=== PATIENT | male | born 1990 | race African-American/Black ===

== ENCOUNTER → 2017-08-28 | Outpatient (CLI) | payer MEDICAID ==
[2017-08-28 16:05] LABS: BILIRUBIN,URINE NEGATIVE (NEGATIVE); BLOOD/HEMOGLOBIN,URINE NEGATIVE (NEGATIVE); GLUCOSE, URINE NEGATIVE (NEGATIVE); KETONES,URINE NEGATIVE (NEGATIVE); LEUKOCYTE ESTERASE ,URINE NEGATIVE (NEGATIVE); NITRITES,URINE NEGATIVE (NEGATIVE); PROTEIN,URINE 1+ (NEGATIVE); UROBILINOGEN,URINE NORMAL (NORMAL)
[2017-08-28 16:12] LABS: APPEARANCE,URINE CLEAR (CLEAR); COLOR,URINE YELLOW (YELLOW); RBC,URINE NONE SEEN /HPF (NEGATIVE)
[2017-08-28 16:13] LABS: BACTERIA,URINE NEGATIVE /HPF (NEGATIVE); SQUAMOUS EPITHELIAL CELL,UR NEGATIVE /HPF (NEGATIVE)
[2017-08-28 16:49] LABS: ALANINE AMINOTRANSFERASE 43 Units/L (12-78); ALBUMIN 3.1 g/dL (3.4-5.0); ALKALINE PHOSPHATASE 164 Units/L (46-116); ASPARTATE AMINO TRANSFERASE 22 Units/L (15-37); BLOOD UREA NITROGEN 16 mg/dL (7-18); CALCIUM 10.2 mg/dL (8.5-10.1); CARBON DIOXIDE 25.8 mmol/L (21-32); CHLORIDE 102 mmol/L (98-107); COR CA(FOR HYPOALB) 10.9 mg/dL (8.5-10.1); COR NA(FOR HYPERGLY) 137 mmol/L (136-145); CREATININE 0.87 mg/dL (0.70-1.30); SODIUM 136 mmol/L (136-145); TOTAL PROTEIN 9.1 g/dL (6.4-8.2); eGFR BLACK RACES > 60 (>60); eGFR NON BLACK RACES > 60 (>60)
--- NOTE | 2017-08-28 17:12 | RAD ---
Examination: Chest, PA and lateral views History: Preop hardware removal Findings: Normal heart size with clear lungs and pleural spaces. There is no mediastinal or hilar les ion. Detail is limited by patient's size. Impression: No acute abnormality demonstrated. Reported By:
== END ==
LOC: LAB 15:19
PROVIDERS: ATTEND Orthopaedic Surgery
DX: Z01.818 Encounter for other preprocedural examination (principal); Z79.01 Long term (current) use of anticoagulants; Z79.899 Other long term (current) drug therapy; Z11.8 Encounter for screening for other infectious and parasitic diseases; Z01.811 Encounter for preprocedural respiratory examination; M86.662 Other chronic osteomyelitis, left tibia and fibula
CPT/HCPCS: 36415; 71046; 80053; 81001; 85610; 85730; 87640; 87641

== ENCOUNTER 2017-09-03 07:13 | Inpatient (IN) | payer MEDICAID ==
[2017-09-03] MEDS ORDERED: NS 100 ML IV 100 ML IV ONE (07:28)
[2017-09-03] MEDS ORDERED: D5 LR 1000 ML 1,000 ML IV ONE (07:28)
[2017-09-03] MEDS ORDERED: ANCEF VIAL 1 GM ONE (07:29)
[2017-09-03] MEDS ORDERED: FENTANYL INJ 250 mcg ONE (08:02)
[2017-09-03] MEDS ORDERED: DILAUDID INJ ONE ×2 (09:27→11:07)
[2017-09-03] MEDS ORDERED: FENTANYL INJ 100 mcg ONE (09:27)
[2017-09-03] MEDS ORDERED: NS IRRIGATION 1000 ML 1,000 ML with BACITRACIN VIAL 50,000 UNT IR ONE ×2 (09:54)
[2017-09-03] MEDS ORDERED: BACTROBAN CREAM TOP ONE (10:00)
[2017-09-03] MEDS ORDERED: BACTROBAN OINT ONE (10:41)
[2017-09-03] MEDS: DILAUDID INJ IVP PRN ×7 (11:05→21:23)
[2017-09-03] MEDS ORDERED: ZOFRAN INJ 4 MG VIAL IVP PRN ×2 (11:07→11:24)
[2017-09-03] MEDS ORDERED: PHENERGAN INJ 25 MG IVP PRN (11:07)
[2017-09-03] MEDS ORDERED: BENADRYL INJ 50 MG VIAL IVP PRN (11:07)
[2017-09-03] MEDS ORDERED: REGLAN INJ 10 MG VIAL IVP PRN (11:07)
--- NOTE | 2017-09-03 11:10 | DR.UPDATE ---
H&P Update History and Physical Update: History and Physical reviewed and patient examined. Changes noted: NO Yes with the following:agree with Dr Houser H&P. will place picc line Procedures (ALL) - Central Line Placement PCM.CLCO: written consent Time out performed: Yes Patient placed pm monitor/pulse ox: Yes prep: mask, gown, gloves, other Centrial line prep: chlorhexidine scrub Ultrasound used for placement: Yes Central line lumen ininserted: double Post procedure: good blood return, all ports aspirated, flushed,capped, sterile dressing applied Patient tolerated procedure: Yes Complications: none
[2017-09-03] MEDS ORDERED: MORPHINE SULFATE INJ 4 MG IVP PRN (11:27)
--- NOTE | 2017-09-03 11:28 | RAD ---
AP chest Indication: PICC line placement Comparison: 08/28/2017 Findings: A left-sided PICC line has been placed the tip appears terminate within the lower SVC. Lung s are clear the heart size is normal. No pleural effusion or pneumothorax. No acute osseous abnormali ty. Impression: Interval placement of a left-sided PICC line with the tip appearing to terminate within t he lower SVC. No acute cardiopulmonary abnormality. Reported By:
--- NOTE | 2017-09-03 11:30 | RAD ---
Four views of the left foreleg Indication: Postop evaluation after hardware removal Comparison: None available Findings: Moderate amount of gas is noted within the subcutaneous tissues of the anterior left knee a nd knee joint consistent with recent surgery. Skin billy are noted overlying the anterior and media l aspect of the left knee. There are healed fracture deformities involving the mid left tibial and fi bular diaphysis. Hardware removal with lucency noted within distal left tibia without evidence of ass ociated fracture. There is also lucency within the proximal left tibia consistent with recent hardwar e removal. Mild Achilles and moderate plantar fascia enthesopathic change. Impression: Postsurgical change within the left foreleg with interval hardware removal from the proxi mal and distal left tibia without acute osseous abnormality. Healed mid left tibial and fibular diaph ysis fracture deformities are noted. Reported By:
[2017-09-03] MEDS ORDERED: LOPRESSOR INJ 5 MG AMP IVP ONE (12:50)
[2017-09-03 12:56] VITALS: BMI 48.7
[2017-09-03] MEDS: HYDROCHLOROTHIAZIDE 12.5 MG CAP PO SCH (13:17)
[2017-09-03] MEDS ORDERED: ZOFRAN INJ 4 MG VIAL ONE ×2 (15:22→15:28)
[2017-09-03] MEDS ORDERED: QUELICIN (OR ANECTINE) ONE (15:28)
[2017-09-03] MEDS ORDERED: VERSED ONE (15:28)
[2017-09-03] MEDS ORDERED: XYLOCAINE 2 % (PLAIN) ONE (15:28)
[2017-09-03] MEDS ORDERED: SUPRANE IN ONE (15:28)
[2017-09-03] MEDS ORDERED: DIPRIVAN VIAL ONE (15:28)
[2017-09-03] MEDS: TOPROL XL PO SCH (18:38)
[2017-09-03] MEDS ORDERED: VANCOMYCIN HCL 1 GM VIAL 1 GM in D5W 250 ML IV 250 ML IV SCH (21:00)
[2017-09-03] MEDS ORDERED: NS 250 ML IV 250 ML IV ONE (21:20)
[2017-09-03] MEDS ORDERED: VANCOMYCIN HCL 1 GM VIAL ONE (21:20)
[2017-09-03] MEDS: AMBIEN PO PRN (21:41)
[2017-09-04] MEDS: DILAUDID INJ IVP PRN ×11 (00:55→22:43)
[2017-09-04] MEDS ORDERED: CHLORASEPTIC SPRAY MT PRN (04:01)
[2017-09-04 06:09] LABS: BASOPHILS # (AUTO) 0.1 X10^3/uL (0.0-0.1); BASOPHILS % (AUTO) 0.6 % (0.2-1.0); EOSINOPHILS # (AUTO) 0.1 x10^3/uL (0.0-0.2); EOSINOPHILS % (AUTO) 0.7 % (0.9-2.9); HEMATOCRIT 37.1 % (42.0-54.0); HEMOGLOBIN 12.6 g/dL (13.5-18.0); LYMPHOCYTES # (AUTO) 1.4 X10^3/uL (1.3-2.9); LYMPHOCYTES % (AUTO) 10.7 % (21.0-51.0); MEAN CORPUSCULAR HEMOGLOBIN 28.1 pg (27.0-34.0); MEAN CORPUSCULAR VOLUME 82.8 fL (80.0-100.0); MEAN PLATELET VOLUME 7.3 fL (7.4-11.0); MONOCYTES % (AUTO) 8.1 % (0.0-13.0); NEUTROPHILS # (AUTO) 10.1 x10^3/uL (2.2-4.8); NEUTROPHILS % (AUTO) 79.9 % (42.0-75.0); PLATELET COUNT 344 X10^3/uL (150.0-450.0); RED BLOOD COUNT 4.48 X10^6/uL (4.7-6.0); RED CELL DISTRIBUTION WIDTH 13.8 % (11.6-16.5); WHITE BLOOD COUNT 12.7 X10^3/uL (3.6-10.0)
[2017-09-04 06:32] LABS: BLOOD UREA NITROGEN 6 mg/dL (7-18); CALCIUM 9.2 mg/dL (8.5-10.1); CARBON DIOXIDE 28.4 mmol/L (21-32); CHLORIDE 97 mmol/L (98-107); COR NA(FOR HYPERGLY) 135 mmol/L (136-145); CREATININE 0.89 mg/dL (0.70-1.30); SODIUM 134 mmol/L (136-145); eGFR BLACK RACES > 60 (>60); eGFR NON BLACK RACES > 60 (>60)
[2017-09-04] MEDS: LOVENOX INJ 30 MG SYR SC SCH (08:08)
[2017-09-04] MEDS: HYDROCHLOROTHIAZIDE 12.5 MG CAP PO SCH (08:08)
[2017-09-04] MEDS: TOPROL XL PO SCH (08:09)
--- NOTE | 2017-09-04 08:10 | RAD ---
HISTORY: Shortness of breath Study: Single view chest Comparison: 09/03/2017 Findings: Stable left-sided PICC. No infiltrate, effusion or pneumothorax identified. The cardiac and mediastin al contours are within normal limits. The soft tissues are unremarkable. IMPRESSION: 1. No acute cardiopulmonary abnormality. Reported By:
[2017-09-04] MEDS ORDERED: OLANZAPINE 15 MG PO SCH (09:00)
[2017-09-04] MEDS ORDERED: PATIENT'S HOME MEDICATION (Rivaroxaban [Xarelto] 20 MG) PO SCH (09:00)
[2017-09-04] MEDS ORDERED: LAMOTRIGINE 100 MG PO SCH (09:00)
[2017-09-04] MEDS: VANCOMYCIN HCL 1 GM VIAL 1 GM in NS 250 ML IV 250 ML IV SCH ×2 (09:15→20:16)
[2017-09-04] MEDS: ZyPREXA TAB 5 MG PO SCH (09:16)
[2017-09-04] MEDS: LAMICTAL TAB 100 MG PO SCH ×2 (09:16→20:16)
[2017-09-04] MEDS: XARELTO PO SCH (09:53)
[2017-09-04] MEDS: FLONASE NASAL SPRAY ENOSTRIL SCH (10:18)
[2017-09-04] MEDS ORDERED: MORPHINE SULFATE INJ 10 MG IVP PRN (13:41)
--- NOTE | 2017-09-04 15:10 | OR.GENERIC ---
Post-Op Note Generic - Post-Op Note Operative Report: Preoperative diagnosis- LEFT tibia chronic osteomyelitis, tibial intramedullary nail in situ Postoperative diagnosis-LEFT tibia chronic osteomyelitis Procedure-1.implant removal LEFT tibia intramedullary nail 2. Incision and drainage of abscess LEFT tibia. 3. Sequestrectomy LEFT tibia. indication-patient for 26-year-old male presents to the office after referral from Dr. Edmundo Cross. Presented to the office with pain and swelling and discharging sinus from LEFT tibia. Patient's past history is significant for an open type III fracture of LEFT tibia treated with multiple debridement and intramedullary nailing.this was done in about 9-10 months ago.labs and x-rays showed signs of infection. X-rays showed that there is progression of healing and fracture line was no more visible. Suite was decided to proceed with the removal of the implant as well as debridement, sequestrectomy of the LEFT tibia.the need for PICC line and also chronic outpatient antibiotic treatment was discussed with him. Need for infectious diseases consult was also discussed with him. Complications like recurrence of infection, progression of the infection, septicemia, need for further procedures, re fracture were discussed with him as well as the mother. Both of them understood and verbalized to same and want to proceed with the procedure. Both of them consented for the procedure. Procedure-patient was seen in the preoperative holding area. Limb was marked. Antibiotics were withheld as we will be getting culture and sensitivity during the surgery. Patient got appropriate block. Patient was brought to the operating room and placed supine on the operating table. He was secureto the table with multiple safety straps. Patient was put under general anesthesia and endotracheal intubation was completed. Tourniquet was applied but was not used throughout the procedure. LEFT limb prepped and draped. The distal locking bolt was removed first. Incision was placed over the old scar. Dissection carried down bluntly to the top for the locking bolt. Locking bolt removed without much difficulty. On removing the locking bolt about 5 cc of malka pus was noted to extrude through the locking bolt hole. Thorough irrigation was done there. Next the proximal locking bolt was taken out.an incision was placed over the old scar. Dissection carried down bluntly to expose the head of the proximal locking bolt. Proximal locking bolt taken out without much difficulty. Again malka pus about 5 cc noted Extruding from the proximal locking bolt. Multiple cultures and sensitivity obtained and sent to the lab. Patient's initial surgery of interlocking was done with a suprapatellar approach. I decided to proceed with an infrapatellar approach for removal of the nail. Incision was placed over the infrapatellar region after determining the appropriate entry with the help of C-arm. Dissection carried down through the patellar tendon and patellar tendon was split. Malka pus was noted to extrude through the proximal part of the fat pad. The rest of the joint was examined and no amlka pus was noted in the joint. There is no active infection of the knee joint. At this time an extraction device was placed in the proximal part of the nail. The nail was extracted without much difficulty. At this time an incision was placed around the sinus corresponding to the old compound fracture. Sinus tract was removed and it tracked to the fracture site. At the fracture site multiple sequestrum were noted and they were removed in total. Fracture site seemed to be completely healed. There is bony bridge noted and no abdominal bruit is noted. Using flexible merchandising assistant the rest of the canal was hand reamed. Multiple cement extractors were used to remove the intramedullary membranes as well as sequestrum noted inside the joint. They were all sent for specimen for pathology as well as culture and sensitivity. Thorough irrigation was completed with about 6 L of normal saline. It was a satisfactory debridement and at the end of the procedure no further malka pus or sequestrum was noted. The wounds were closed in layers. Sterile dressing applied. Patient was woken up from the surgery and endotracheal intubation was taken out. Patient was shifted to the PACU in stable condition. He was afebrile. Postop x-rays were done which shows removal of the implant and irrigated the fracture site and no further obvious sequestrum noted. The findings were discussed with the mother. We will have to admit him to really get culture and sensitivity report. We will proceed with partial weightbearing of the LEFT lower limb. We will start an IV vancomycin 1 g every 12 for him. He is a known case of further DVT with PE so we will start him back on xeralto tomorrow.
--- NOTE | 2017-09-04 15:21 | PCM.PROG ---
Progress Note - Progress Note for Day of Date: 09/04/17 - Subjective Subjective: patient is postoperative day 1. He reports he is doing well at this time. He did get out of the bed with the help of physical therapy with partial weightbearing. He is currently on Lovenox. Does not have any fever. The initial culture and sensitivity is negative for any growth at this time. He is currently on 1 g of vancomycin with PICC line. Plan. 1. Infectious diseases consult. 2. Partial weightbearing with the help of crutches. 3. Transition him to his regular xeralto. 4. transition him to by mouthpain medications. 5. Regular wound care. 6. Continue IV vancomycin as advised with his PICC line. 7. social media content manager for his continued care after discharge planning. - Past Medical Family Social History Allergies: Allergies No Known Drug Allergies Allergy (Verified 09/03/17 07:54) - Vital Signs and I&O's Vital Signs: Temperature 97.5 F Pulse Rate [Apical] 121 Pulse Rate 89 Respiratory Rate 20 Blood Pressure [Right Arm] 118/59 Blood Pressure 174/95 O2 Sat by Pulse Oximetry 93 Intake and Output: Intake & Output 09/02/17 09/03/17 09/04/17 09/05/17 11:59 11:59 11:59 11:59 Intake Total 2700 Output Total 300 2200 Balance -300 500 - Physical Exam Mood Description: Calm Speech Pattern: Clear, Appropriate - Laboratory and Diagnostics Result Diagrams: 09/04/17 05:25 09/04/17 05:25 Labs: 09/03/17 10:53 Leg - Left Gram Stain - Final 09/03/17 10:53 Leg - Left Wound Culture - Preliminary 09/03/17 10:53 Leg - Left - Preliminary Laboratory WBC 12.7 X10^3/uL (3.6-10.0) H 09/04/17 05:25 RBC 4.48 X10^6/uL (4.7-6.0) L 09/04/17 05:25 Hgb 12.6 g/dL (13.5-18.0) L 09/04/17 05:25 Hct 37.1 % (42.0-54.0) L 09/04/17 05:25 MCV 82.8 fL (80.0-100.0) 09/04/17 05:25 MCH 28.1 pg (27.0-34.0) 09/04/17 05:25 MCHC 34.0 g/dL (33.0-35.0) 09/04/17 05:25 RDW 13.8 % (11.6-16.5) 09/04/17 05:25 Plt Count 344 X10^3/uL (150.0-450.0) 09/04/17 05:25 MPV 7.3 fL (7.4-11.0) L 09/04/17 05:25 Neut % 79.9 % (42.0-75.0) H 09/04/17 05:25 Lymph % 10.7 % (21.0-51.0) L 09/04/17 05:25 [place] % 8.1 % (0.0-13.0) 09/04/17 05:25 Eos % 0.7 % (0.9-2.9) L 09/04/17 05:25 Baso % 0.6 % (0.2-1.0) 09/04/17 05:25 Neut # 10.1 x10^3/uL (2.2-4.8) H 09/04/17 05:25 Lymph # 1.4 X10^3/uL (1.3-2.9) 09/04/17 05:25 [place] # 1.0 x10^3/uL (0.3-0.8) H 09/04/17 05:25 Eos # 0.1 x10^3/uL (0.0-0.2) 09/04/17 05:25 Baso # 0.1 X10^3/uL (0.0-0.1) 09/04/17 05:25 Absolute Nucleated RBC 0.0 /100WBC 09/04/17 05:25 Sodium 134 mmol/L (136-145) L 09/04/17 05:25 Corrected Sodium 135 mmol/L (136-145) L 09/04/17 05:25 Potassium 3.6 mmol/L (3.5-5.1) 09/04/17 05:25 Chloride 97 mmol/L (98-107) L 09/04/17 05:25 Carbon Dioxide 28.4 mmol/L (21-32) 09/04/17 05:25 BUN 6 mg/dL (7-18) L 09/04/17 05:25 Creatinine 0.89 mg/dL (0.70-1.30) 09/04/17 05:25 Est GFR (MDRD) Af Amer > 60 (>60) 09/04/17 05:25 Est GFR (MDRD) Non-Af > 60 (>60) 09/04/17 05:25 Glucose 127 mg/dL (65-99) H 09/04/17 05:25 Calcium 9.2 mg/dL (8.5-10.1) 09/04/17 05:25 - Plan (1) Chronic osteomyelitis Status: Chronic Plan: 1. Infectious diseases consult. 2. Partial weightbearing with the help of crutches. 3. Transition him to his regular xeralto. 4. transition him to by mouthpain medications. 5. Regular wound care. 6. Continue IV vancomycin as advised with his PICC line. 7. social media content manager for his continued care after discharge planning.
[2017-09-04] MEDS: AMBIEN PO PRN (20:16)
[2017-09-04] MEDS: NS 500 ML IV 500 ML IV SCH (20:37)
[2017-09-04] MEDS: ATARAX TAB 25 MG PO PRN (20:42)
[2017-09-05] MEDS: DILAUDID INJ IVP PRN ×7 (00:18→21:27)
[2017-09-05 06:08] LABS: BASOPHILS # (AUTO) 0.1 X10^3/uL (0.0-0.1); BASOPHILS % (AUTO) 0.6 % (0.2-1.0); EOSINOPHILS # (AUTO) 0.3 x10^3/uL (0.0-0.2); EOSINOPHILS % (AUTO) 2.7 % (0.9-2.9); HEMATOCRIT 36.4 % (42.0-54.0); HEMOGLOBIN 12.4 g/dL (13.5-18.0); LYMPHOCYTES # (AUTO) 1.6 X10^3/uL (1.3-2.9); LYMPHOCYTES % (AUTO) 16.8 % (21.0-51.0); MEAN CORPUSCULAR HEMOGLOBIN 28.1 pg (27.0-34.0); MEAN CORPUSCULAR HGB CONC 33.9 g/dL (33.0-35.0); MEAN CORPUSCULAR VOLUME 82.9 fL (80.0-100.0); MEAN PLATELET VOLUME 7.1 fL (7.4-11.0); MONOCYTES # (AUTO) 0.8 x10^3/uL (0.3-0.8); MONOCYTES % (AUTO) 8.6 % (0.0-13.0); NEUTROPHILS # (AUTO) 6.8 x10^3/uL (2.2-4.8); NEUTROPHILS % (AUTO) 71.3 % (42.0-75.0); PLATELET COUNT 306 X10^3/uL (150.0-450.0); RED CELL DISTRIBUTION WIDTH 13.6 % (11.6-16.5); WHITE BLOOD COUNT 9.5 X10^3/uL (3.6-10.0)
[2017-09-05 06:30] LABS: BLOOD UREA NITROGEN 9 mg/dL (7-18); CALCIUM 9.2 mg/dL (8.5-10.1); CARBON DIOXIDE 31.5 mmol/L (21-32); CHLORIDE 98 mmol/L (98-107); COR NA(FOR HYPERGLY) 138 mmol/L (136-145); CREATININE 0.79 mg/dL (0.70-1.30); SODIUM 137 mmol/L (136-145); eGFR BLACK RACES > 60 (>60); eGFR NON BLACK RACES > 60 (>60)
[2017-09-05] MEDS: VANCOMYCIN HCL 1 GM VIAL 1 GM in NS 250 ML IV 250 ML IV SCH (08:36)
[2017-09-05] MEDS: XARELTO PO SCH (08:37)
[2017-09-05] MEDS: ZyPREXA TAB 5 MG PO SCH (08:37)
[2017-09-05] MEDS: HYDROCHLOROTHIAZIDE 12.5 MG CAP PO SCH (08:37)
[2017-09-05] MEDS: TOPROL XL PO SCH (08:38)
[2017-09-05] MEDS: LAMICTAL TAB 100 MG PO SCH ×2 (08:38→20:34)
[2017-09-05] MEDS: LOVENOX INJ 30 MG SYR SC SCH (08:38)
[2017-09-05] MEDS: FLONASE NASAL SPRAY ENOSTRIL SCH (08:39)
[2017-09-05] MEDS: NORCO 10/325 TAB PO PRN ×2 (15:02→19:18)
[2017-09-05] MEDS ORDERED: MILK OF MAGNESIA PO SCH (21:00)
[2017-09-05] MEDS ORDERED: COLACE CAP 100 MG PO SCH (21:00)
[2017-09-05] MEDS ORDERED: GLUCOPHAGE XR PO SCH (21:00)
[2017-09-05 21:06] LABS: CREATININE 0.73 mg/dL (0.70-1.30); VANCOMYCIN,TROUGH < 2.0 ug/mL (15-20)
[2017-09-05] MEDS: NS 500 ML IV 500 ML IV SCH (21:52)
[2017-09-05] MEDS ORDERED: NS 250 ML IV 250 ML IV ONE (21:53)
[2017-09-05] MEDS ORDERED: VANCOMYCIN HCL 1 GM VIAL ONE (21:54)
[2017-09-05] MEDS ORDERED: VANCOMYCIN HCL 500 MG VIAL ONE (21:54)
[2017-09-05] MEDS: VANCOMYCIN HCL 500 MG VIAL 250 MG, VANCOMYCIN HCL 1 GM VIAL 1 GM in D5W 250 ML IV 250 ML IV SCH (22:00)
[2017-09-05] MEDS: AMBIEN PO PRN (22:04)
[2017-09-05] MEDS: ATARAX TAB 25 MG PO PRN (22:04)
[2017-09-06] MEDS: NORCO 10/325 TAB PO PRN (00:46)
[2017-09-06] MEDS: DILAUDID INJ IVP PRN (05:25)
[2017-09-06 06:33] LABS: BASOPHILS % (AUTO) 0.5 % (0.2-1.0); EOSINOPHILS # (AUTO) 0.3 x10^3/uL (0.0-0.2); EOSINOPHILS % (AUTO) 3.9 % (0.9-2.9); HEMATOCRIT 36.2 % (42.0-54.0); HEMOGLOBIN 12.5 g/dL (13.5-18.0); LYMPHOCYTES # (AUTO) 1.2 X10^3/uL (1.3-2.9); LYMPHOCYTES % (AUTO) 16.9 % (21.0-51.0); MEAN CORPUSCULAR HEMOGLOBIN 28.4 pg (27.0-34.0); MEAN CORPUSCULAR HGB CONC 34.6 g/dL (33.0-35.0); MEAN CORPUSCULAR VOLUME 81.9 fL (80.0-100.0); MEAN PLATELET VOLUME 7.7 fL (7.4-11.0); MONOCYTES # (AUTO) 0.6 x10^3/uL (0.3-0.8); MONOCYTES % (AUTO) 8.7 % (0.0-13.0); NEUTROPHILS # (AUTO) 5.1 x10^3/uL (2.2-4.8); PLATELET COUNT 271 X10^3/uL (150.0-450.0); RED BLOOD COUNT 4.42 X10^6/uL (4.7-6.0); WHITE BLOOD COUNT 7.3 X10^3/uL (3.6-10.0)
[2017-09-06 06:49] LABS: BLOOD UREA NITROGEN 8 mg/dL (7-18); CALCIUM 9.6 mg/dL (8.5-10.1); CARBON DIOXIDE 25.6 mmol/L (21-32); CHLORIDE 99 mmol/L (98-107); CREATININE 0.75 mg/dL (0.70-1.30); eGFR BLACK RACES > 60 (>60); eGFR NON BLACK RACES > 60 (>60)
[2017-09-06 06:56] LABS: SODIUM 138 mmol/L (136-145)
[2017-09-06] MEDS: ZyPREXA TAB 5 MG PO SCH (09:33)
[2017-09-06] MEDS: XARELTO PO SCH (09:33)
[2017-09-06] MEDS: TOPROL XL PO SCH (09:33)
[2017-09-06] MEDS: LAMICTAL TAB 100 MG PO SCH (09:34)
[2017-09-06] MEDS: FLONASE NASAL SPRAY ENOSTRIL SCH (09:34)
[2017-09-06] MEDS: HYDROCHLOROTHIAZIDE 12.5 MG CAP PO SCH (09:34)
[2017-09-06] MEDS: VANCOMYCIN HCL 500 MG VIAL 250 MG, VANCOMYCIN HCL 1 GM VIAL 1 GM in D5W 250 ML IV 250 ML IV SCH (10:57)
[2017-09-06 12:14] VITALS: BP 130/77
--- NOTE | 2017-09-06 13:16 | PCM.PROG ---
Progress Note - Progress Note for Day of Date: 09/06/17 - Subjective Subjective: patient had his PICC line pulled out accidentally his strain night when he rolled over.he currently is afebrile, his cultures are negative for any growth at day 3. We will shift him to Zyvox for the time being. we will try to get him to see infectious diseases doctor as early as possible.We will continue with his xeralto. we will continue with partial weightbearing with the help of crutches. his pain is currently well controlled with by mouth pain meds. His dressing is clean and dry. His vitals are stable and he's afebrile. we will discharge him today on Zyvox and leave it up to the infectious diseases to decide on the appropriate antibiotic for him. Plan. 1. Infectious diseases consult. 2. Partial weightbearing with the help of crutches. 3. transition him to by mouthpain medications. 4. Regular wound care. - Past Medical Family Social History Allergies: Allergies No Known Drug Allergies Allergy (Verified 09/03/17 07:54) - Vital Signs and I&O's Vital Signs: Temperature 98.9 F Pulse Rate [Apical] 96 Pulse Rate 89 Respiratory Rate 20 Blood Pressure [Right Arm] 130/77 Blood Pressure 174/95 O2 Sat by Pulse Oximetry 96 Intake and Output: Intake & Output 09/04/17 09/05/17 09/06/17 09/07/17 11:59 11:59 11:59 11:59 Intake Total 2700 2920 2810 Output Total 2200 0 0 Balance 500 2920 2810 - Physical Exam Mood Description: Calm Speech Pattern: Clear, Appropriate - Laboratory and Diagnostics Result Diagrams: 09/06/17 05:25 09/06/17 05:25 Labs: 09/03/17 10:53 Leg - Left Gram Stain - Final 09/03/17 10:53 Leg - Left Wound Culture - Preliminary 09/03/17 10:53 Leg - Left - Preliminary Laboratory WBC 7.3 X10^3/uL (3.6-10.0) 09/06/17 05:25 RBC 4.42 X10^6/uL (4.7-6.0) L 09/06/17 05:25 Hgb 12.5 g/dL (13.5-18.0) L 09/06/17 05:25 Hct 36.2 % (42.0-54.0) L 09/06/17 05:25 MCV 81.9 fL (80.0-100.0) 09/06/17 05:25 MCH 28.4 pg (27.0-34.0) 09/06/17 05:25 MCHC 34.6 g/dL (33.0-35.0) 09/06/17 05:25 RDW 14.0 % (11.6-16.5) 09/06/17 05:25 Plt Count 271 X10^3/uL (150.0-450.0) 09/06/17 05:25 MPV 7.7 fL (7.4-11.0) 09/06/17 05:25 Neut % 70.0 % (42.0-75.0) 09/06/17 05:25 Lymph % 16.9 % (21.0-51.0) L 09/06/17 05:25 [place] % 8.7 % (0.0-13.0) 09/06/17 05:25 Eos % 3.9 % (0.9-2.9) H 09/06/17 05:25 Baso % 0.5 % (0.2-1.0) 09/06/17 05:25 Neut # 5.1 x10^3/uL (2.2-4.8) H 09/06/17 05:25 Lymph # 1.2 X10^3/uL (1.3-2.9) L 09/06/17 05:25 [place] # 0.6 x10^3/uL (0.3-0.8) 09/06/17 05:25 Eos # 0.3 x10^3/uL (0.0-0.2) H 09/06/17 05:25 Baso # 0.0 X10^3/uL (0.0-0.1) 09/06/17 05:25 Absolute Nucleated RBC 0.1 /100WBC 09/06/17 05:25 Sodium 138 mmol/L (136-145) 09/06/17 05:25 Corrected Sodium TNP 09/06/17 05:25 Potassium 3.8 mmol/L (3.5-5.1) 09/06/17 05:25 Chloride 99 mmol/L (98-107) 09/06/17 05:25 Carbon Dioxide 25.6 mmol/L (21-32) 09/06/17 05:25 BUN 8 mg/dL (7-18) 09/06/17 05:25 Creatinine 0.75 mg/dL (0.70-1.30) 09/06/17 05:25 Est GFR (MDRD) Af Amer > 60 (>60) 09/06/17 05:25 Est GFR (MDRD) Non-Af > 60 (>60) 09/06/17 05:25 Glucose 106 mg/dL (65-99) H 09/06/17 05:25 Hemoglobin A1c 6.0 % (4.5-6.2) 09/06/17 05:25 Calcium 9.6 mg/dL (8.5-10.1) 09/06/17 05:25 Vancomycin Trough < 2.0 ug/mL (15-20) L 09/05/17 20:35 - Plan (1) Chronic osteomyelitis Status: Chronic Plan: 1. Infectious diseases consult. 2. Partial weightbearing with the help of crutches. 3. Regular wound care.
== END 2017-09-06 12:45 | disposition home or self-care (01) | DRG 494 ==
LOC: SURG1 07:13 → ICU 11:27
PROVIDERS: ADMIT Orthopaedic Surgery; ATTEND Obstetrics & Gynecology Obstetrics
PROC: 0QPH04Z Removal of Internal Fixation Device from Left Tibia, Open Approach (ICD-10-PCS; principal; 2017-09-04)
PROC: 0QCH0ZZ Extirpation of Matter from Left Tibia, Open Approach (ICD-10-PCS; 2017-09-04)
PROC: 0Y9J0ZZ Drainage of Left Lower Leg, Open Approach (ICD-10-PCS; 2017-09-04)
PROC: 02HV33Z Insertion of Infusion Device into Superior Vena Cava, Percutaneous Approach (ICD-10-PCS; 2017-09-04)
DX: M86.662 Other chronic osteomyelitis, left tibia and fibula (principal); I10 Essential (primary) hypertension; Z86.718 Personal history of other venous thrombosis and embolism; B95.62 Methicillin resistant Staphylococcus aureus infection as the cause of diseases classified elsewhere; R26.89 Other abnormalities of gait and mobility
CPT/HCPCS: 36415; 71045; 73590; 76000; 80048; 80202; 82565; 83036; 83525; 85025; 87070; 87075; 87205; 94640; 97535; A4216; A4222; J0330; J0690; J1170; J1650; J2001; J2250; J2270; J2405; J3010; J3370; J3490; J7120

== ENCOUNTER 2017-09-21 08:14 | Day surgery (SDC) | payer MEDICAID ==
[2017-09-21 08:38] VITALS: BMI 48.7
[2017-09-21] MEDS ORDERED: XYLOCAINE 1 % (PLAIN) ONE (08:40)
[2017-09-21 09:30] VITALS: BP 131/71
--- NOTE | 2017-09-21 09:44 | DR.H&P ---
H&P - History & Physical for Day of: H&P Date: 09/21/17 - Chief Complaint Chief Complaint: osteomyelitis left tibia - Allergies Allergies/Adverse Reactions: Allergies Allergy/AdvReac Type Severity Reaction Status Date / Time No Known Drug Allergies Allergy Verified 09/03/17 07:54 - History of Present Illness History of Present Illness: pt presents today for picc insertion for long-term abx therapy for left leg osteomyelitis. Picc was placed during surgery 2 weeks ago, however picc was dislodged after 1-2 days. - Past Medical History Past Medical History: Hypertension Additional Medical History: morbid obesity, bipolar disorder - Past Surgical History Surgical History: Ortho Surgery (left tibia nail and subsequent I&D), Tonsillectomy - Review of Systems Musculoskeletal: Leg Pain (left leg pain) Skin: Wound (left leg bandage intact) - Physical Exam Vital Signs: Temperature 98.2 F Pulse Rate [Right] 84 Respiratory Rate 20 Blood Pressure [Right Arm] 131/71 Blood Pressure 140/74 O2 Sat by Pulse Oximetry 98 Cardiovascular: Normal Skin: Wound (left leg dressing intact) Psychiatric: Normal Mood Description: Calm Speech Pattern: Clear, Appropriate - Assessment/Plan (1) Chronic osteomyelitis Status: Chronic Plan: picc line insertion Procedures (ALL) - Central Line Placement PCM.CLCO: written consent Time out performed: Yes Patient placed pm monitor/pulse ox: Yes MD prep: mask, gown, gloves, other Centrial line prep: chlorhexidine scrub Local anesthsia used: lidocane 1% (2cc) Ultrasound used for placement: Yes (left basilic vein identified) Central line lumen ininserted: double (5Fr power port. trimmed length 48cm with no catheter exposed) Post procedure: sutured in place, good blood return, all ports aspirated, flushed,capped, sterile dressing applied Post procedure xray: tip oc catheter in good position (per cxr) Patient tolerated procedure: Yes Complications: none
--- NOTE | 2017-09-21 10:00 | RAD ---
History: PICC line placement Study: Portable chest, comparison 09/04/2017 Findings: Portable erect chest labeled 934 hours shows placement of a left-sided PICC the tip of whic h overlies the SVC. The previously noted PICC line from 09/04/2017 reportedly was removed. There are seen wires overlying the upper chest. These were reported to be wires associated with head phones. The lungs as visualized appear clear. The lung bases are excluded from view. Impression: 1. The tip of the PICC catheter overlies the junction of the right and left innominate vein/SVC. 2. The additional wires overlying the thorax are unrelated. Reported By:
== END 2017-09-21 09:31 | disposition home or self-care (01) | DRG 949 ==
LOC: SURG1 08:14
PROVIDERS: ATTEND Orthopaedic Surgery
PROC: 02HV33Z Insertion of Infusion Device into Superior Vena Cava, Percutaneous Approach (ICD-10-PCS; principal; 2017-09-21)
PROC: B548ZZA Ultrasonography of Superior Vena Cava, Guidance (ICD-10-PCS; 2017-09-21)
DX: Z45.2 Encounter for adjustment and management of vascular access device (principal); M86.8X6 Other osteomyelitis, lower leg
CPT/HCPCS: 71045; J2001